=== PATIENT | female | born 1995 | race Two or more races ===

== ENCOUNTER 2017-07-04 06:29 | Emergency (ER) | payer OTHER | END 2017-07-04 06:59 | disposition home or self-care (01) | LOC: ER 06:29 | DX: K05.20 Aggressive periodontitis, unspecified (principal) | CPT/HCPCS: 99283 ==

== ENCOUNTER 2018-08-21 15:41 | Emergency (ER) | payer OTHER ==
[~2018-08-21] VITALS: Ht 160 cm; Wt 81.6 kg
[~2018-08-21 15:41] MED LIST: CLIN150C14 PO; HYDR-3164 PO; IBUP-1007 PO
[2018-08-21 15:56] VITALS: BP 110/73
[2018-08-21] MEDS ORDERED: CETIRIZINE HCL 10 MG TABLET. PO STA (16:39)
[2018-08-21] MEDS ORDERED: predniSONE 10 MG TABLET PO ONE (16:45)
[2018-08-21] MEDS ORDERED: KETOTIFEN FUMARATE 0.025% OPHTH SOLUTION BOTTLE. OU ONE (16:45)
[2018-08-21] MEDS ORDERED: CETI10TA22 PO (16:56)
--- NOTE | 2018-08-21 16:56 | PHYS DOC ---
Past Medical History Past Medical History: No Pertinent History Past Surgical History: No Surgical History Alcohol Use: None Drug Use: None Adult General Chief Complaint Chief Complaint: EYE PROBLEMS HPI HPI Patient is a 22 year old female with no significant medical history who presents to the ED today complaining of bilateral eyes itching and redness as well as clear drainage with sneezing that began a week ago. Patient denies any fever coughing or congestion. Review of Systems Review of Systems Constitutional: Denies fever or chills [] Eyes: Pupils bilateral eye itching, redness, clear drainage. Denies change in visual acuity, eye pain [] HENT: Reports sneezing. Denies nasal congestion or sore throat [] Respiratory: Denies cough or shortness of breath [] Cardiovascular: No additional information not addressed in HPI [] GI: Denies abdominal pain, nausea, vomiting, bloody stools or diarrhea [] : Denies dysuria or hematuria [] Musculoskeletal: Denies back pain or joint pain [] Integument: Denies rash or skin lesions [] Neurologic: Denies headache, focal weakness or sensory changes [] All other systems were reviewed and found to be within normal limits, except as documented in this note. Current Medications Current Medications Current Medications Medications (Trade) Dose Ordered Sig/Melba Start Time Stop Time Status Last Admin Dose Admin Cetirizine HCl (ZyrTEC) 10 mg 1X STAT 08/21/18 16:39 08/21/18 16:40 DC Ketotifen Fumarate (Zaditor) 1 drop 1X ONCE 08/21/18 16:45 08/21/18 16:46 DC Prednisone (Prednisone) 50 mg 1X ONCE 08/21/18 16:45 08/21/18 16:46 DC Allergies Allergies Allergies Coded Allergies Type Severity Reaction Last Updated Verified No Known Drug Allergies 07/04/17 No Physical Exam Physical Exam Constitutional: Well developed, well nourished, no acute distress, non-toxic appearance. [] HENT: Normocephalic, atraumatic, bilateral external ears normal, oropharynx moist, no oral exudates, nose normal. [] Eyes: PERRLA, EOMI, bilateral conjunctiva mildly injected right worse than left , clear drainage noted Neck: Normal range of motion, no tenderness, supple, no stridor. [] Cardiovascular:Heart rate regular rhythm, no murmur [] Lungs & Thorax: Bilateral breath sounds clear to auscultation [] Abdomen: Bowel sounds normal, soft, no tenderness, no masses, no pulsatile masses. [] Skin: Warm, dry, no erythema, no rash. [] Back: No tenderness, no CVA tenderness. [] Extremities: No tenderness, no cyanosis, no clubbing, ROM intact, no edema. [] Neurologic: Alert and oriented X 3, normal motor function, normal sensory function, no focal deficits noted. [] Psychologic: Affect normal, judgement normal, mood normal. [] Current Patient Data Vital Signs Vital Signs Date Time Temp Pulse Resp B/P (MAP) Pulse Ox O2 Delivery O2 Flow Rate FiO2 08/21/18 15:56 99.0 73 20 110/73 (85) 98 Room Air 99.0 EKG EKG [] Radiology/Procedures Radiology/Procedures [] Course & Med Decision Making Course & Med Decision Making Pertinent Labs and Imaging studies reviewed. (See chart for details) Patient is in the ED with symptoms consistent of seasonal allergies. Was given Zaditor eyedrops in the ED, discharged with Zyrtec. Follow-up with PCP in 1-2 weeks as needed. Dragon Disclaimer Dragon Disclaimer This electronic medical record was generated, in whole or in part, using a voice recognition dictation system. Departure Departure Impression: Primary Impression: Allergic conjunctivitis and rhinitis Disposition: 01 HOME, SELF-CARE Condition: STABLE Referrals: NO PCP (PCP) Follow-up with your doctor in 1-2 weeks Patient Instructions: Allergic Conjunctivitis, [id number], Allergies, Generic Additional Instructions: You were evaluated in the emergency room with symptoms consistent of seasonal allergies. Use Zaditor twice a day. Take Zyrtec every day. Follow-up with your doctor in 2 weeks. Scripts Cetirizine Hcl (ZYRTEC) 10 Mg Tablet 1 TAB PO DAILY, #30 TAB 2 Refills Prov: DARIUZS LEE APRN 08/21/18 Problem Qualifiers Primary Impression: Allergic conjunctivitis and rhinitis Laterality: bilateral Qualified Codes: H10.13 - Acute atopic conjunctivitis , bilateral; J30.9 - Allergic rhinitis, unspecified ROSADARIUSZ DIONI Aug 21, 2018 16:56
== END 2018-08-21 17:16 | disposition home or self-care (01) ==
LOC: ER 15:41
DX: H10.13 Acute atopic conjunctivitis, bilateral (principal); J30.9 Allergic rhinitis, unspecified
CPT/HCPCS: 99284; J7512

== ENCOUNTER 2020-09-28 00:42 | Emergency (ER) | payer OTHER ==
[~2020-09-28] VITALS: Ht 157.5 cm; Wt 90.9 kg
[~2020-09-28 00:42] MED LIST changes: +CETI10TA74 PO; -CLIN150C14 PO; +CLIN150C15 PO
--- NOTE | 2020-09-28 03:21 | ED.ADGEN ---
Past Medical History Past Medical History: No Pertinent History Past Surgical History: No Surgical History Smoking Status: Never Smoker Alcohol Use: None Drug Use: None General Adult EDM: Chief Complaint: VAGINAL BLEEDING HPI: HPI: Patient is 25-year-old female who presents to the emergency room complaining of vaginal bleeding during . Patient states that she had a positive test 2 weeks ago. She states that she was seen at 4 days ago when she first had bleeding at that time she had a positive test. She states that they did not do an ultrasound at that time but told her that this bleeding was normal. She states that at that time she was having mild spotting. She then developed heavy bleeding with clots. She stopped bleeding yesterday. She took test this morning and it was negative. She no longer has any bleeding or pain. Review of Systems: Review of Systems: Complete ROS is negative unless otherwise documented in HPI Allergies: Allergies: Allergies Coded Allergies Type Severity Reaction Last Updated Verified No Known Drug Allergies 07/04/17 No Physical Exam: PE: General: Awake, alert, NAD. Well Nourished, well hydrated. Cooperative HEENT: Atraumatic, EOMI, PERRL, airway patent, moist oral mucosa Neck: Supple, trachea midline Respiratory: CTA bilaterally, normal effort, no wheezing/crackles CV: RRR, no murmur, cap refill <2 GI: Soft, nondistended, nontender, no masses MSK: No obvious deformities Skin: Warm, dry, intact Neuro: A&O x3, speech NL, sensory and motor grossly intact, no focal deficits Psych: Normal affect, normal mood, not suicidal or homicidal Current Patient Data: Labs: Laboratory Tests Test 09/28/20 00:56 09/28/20 02:00 POC Urine HCG, Qualitative Hcg negative (Negative) Maternal Serum HCG Beta Subunit 13 mIU/mL (0-5) H Vital Signs: Vital Signs Date Time Temp Pulse Resp B/P (MAP) Pulse Ox O2 Delivery O2 Flow Rate FiO2 09/28/20 02:28 68 18 96/59 (71) 99 Room Air 09/28/20 01:00 98.0 98.0 EKG: EKG: [] Heart Score: C/O Chest Pain: N/A Risk Factors: Risk Factors: DM, Current or recent (<one month) smoker, HTN, HLP, family history of CAD, obesity. Risk Scores: Score 0 - 3: 2.5% MACE over next 6 weeks - Discharge Home Score 4 - 6: 20.3% MACE over next 6 weeks - Admit for Clinical Observation Score 7 - 10: 72.7% MACE over next 6 weeks - Early Invasive Strategies Radiology/Procedures: Radiology/Procedures: [] Course & Med Decision Making: Course & Med Decision Making Pertinent Labs and Imaging studies reviewed. (See chart for details) Patient is a 25-year-old female who presents to the emergency room complaining of vaginal bleeding during . At this time patient's test is negative. He does like that she had a miscarriage earlier in the week. She no longer has any bleeding or pain making ectopic highly unlikely. Type and screen was done due to vaginal bleeding during and patient is AB-. She will be given RhoGam here in the emergency room. She will follow up with [facility]. Patient's test results and vitals while in the ED were fully reviewed and discussed with the patient. Patient is stable and at this time does not need admission to the hospital. We have discussed strict return precautions and the importance of following up with their Primary Care Physician. Patient stated understanding and was given an opportunity to ask any questions. Patient is in agreement with plan. Dragon Disclaimer: Symone Disclaimer: This electronic medical record was generated, in whole or in part, using a voice recognition dictation system. Departure Departure Impression: Primary Impression: Miscarriage Additional Impression: Need for rhogam due to Rh negative mother Disposition: HOME / SELF CARE / HOMELESS Condition: STABLE Referrals: UNKNOWN PCP NAME (PCP) Patient Instructions: Miscarriage, RhoGAM Problem Qualifiers AIMEE SCHAFER MD September 28, 2020 03:21
[2020-09-28 03:41] VITALS: BP 120/72
== END 2020-09-28 03:50 | disposition home or self-care (01) ==
LOC: ER 00:42
DX: O03.9 Complete or unspecified spontaneous abortion without complication (principal)
CPT/HCPCS: 36415; 36430; 81025; 84702; 86850; 86900; 86901; 99285; J2790

== ENCOUNTER 2021-01-02 13:20 | Emergency (ER) | payer OTHER ==
[~2021-01-02] VITALS: Ht 160 cm; Wt 90.0 kg
[~2021-01-02 13:20] MED LIST changes: -CLIN150C15 PO; +CLIN150C16 PO
[2021-01-02] MEDS ORDERED: ONDANSETRON PF 4 MG/2 ML VIAL. IVP ONE (14:00)
[2021-01-02] MEDS ORDERED: IV NORMAL SALINE 1000ML BAG 1,000 ML IV SCH (14:00)
[2021-01-02] MEDS ORDERED: MORPHINE SULFATE 4 MG/ML INJ. IV/SQ PRN (14:00)
--- NOTE | 2021-01-02 14:00 | ED.ADGEN ---
Past Medical History Past Medical History: No Pertinent History Additional Past Medical Histor: miscarriage Past Surgical History: No Surgical History Smoking Status: Never Smoker Alcohol Use: None Drug Use: None General Adult EDM: Chief Complaint: ABDOMINAL PAIN HPI: HPI: Patient is a 25-year-old female who arrives ambulatory to the emergency department complaining of midepigastric pain upper abdomen as well as nausea with vomiting. Patient reports her pain began today however she has regularly experienced experiences nausea and vomiting with any oral intake throughout her . Patient also points to the epigastric/mid abdomen as to where her pain lies. Patient states despite her symptoms, she is not had any fevers. She further denies any lower abdominal pain, diarrhea, genitourinary symptoms or any vaginal bleeding. It is worth noting the patient is 14 weeks and has care outside of the hospital. She is awake, alert and uncomfortable appearing. Review of Systems: Review of Systems: Constitutional: Denies fever or chills. [] Eyes: Denies change in visual acuity. [] HENT: Denies nasal congestion or sore throat. [] Respiratory: Denies cough or shortness of breath. [] Cardiovascular: Denies chest pain or edema. [] GI: Reports nausea with vomiting and abdominal pain. Denies bloody stools or diarrhea. [] : Reports . Denies dysuria. [] Musculoskeletal: Denies back pain or joint pain. [] Integument: Denies rash. [] Neurologic: Denies headache, focal weakness or sensory changes. [] Endocrine: Denies polyuria or polydipsia. [] Lymphatic: Denies swollen glands. [] Psychiatric: Denies depression or anxiety. [] Current Medications: Current Medications Medications (Trade) Dose Ordered Sig/[facility] Start Time Stop Time Status Last Admin Dose Admin Morphine Sulfate (Morphine Sulfate) 4 mg PRN Q15MIN PRN 01/02/21 14:00 01/03/21 13:59 01/02/21 14:07 4 MG Ondansetron HCl (Zofran) 4 mg 1X ONCE 01/02/21 14:00 01/02/21 14:01 DC 01/02/21 14:07 4 MG Sodium Chloride 1,000 ml @ 1,000 mls/hr Q1H 01/02/21 14:00 01/02/21 14:59 DC 01/02/21 14:07 1,000 MLS/HR Allergies: Allergies: Allergies Coded Allergies Type Severity Reaction Last Updated Verified No Known Drug Allergies 01/02/21 No Physical Exam: PE: Constitutional: Uncomfortable appearing. Well developed, well nourished, no acute distress, non-toxic appearance. [] HENT: Normocephalic, atraumatic, bilateral external ears normal, oropharynx moist, no oral exudates, nose normal. [] Eyes: PERRLA, EOMI, conjunctiva normal, no discharge. [] Neck: Normal range of motion, no tenderness, supple, no stridor. [] Cardiovascular:Heart rate regular rhythm, no murmur [] Lungs & Thorax: Bilateral breath sounds clear to auscultation [] Abdomen: Tenderness palpation of the epigastric region. Bowel sounds normal, soft, no masses, no pulsatile masses. [] Skin: Warm, dry, no erythema, no rash. [] Back: No tenderness, no CVA tenderness. [] Extremities: No tenderness, no cyanosis, no clubbing, ROM intact, no edema. [] Neurologic: Alert and oriented X 3, normal motor function, normal sensory function, no focal deficits noted. [] Psychologic: Affect normal, judgement normal, mood normal. [] Current Patient Data: Labs: Laboratory Tests Test 01/02/21 13:30 01/02/21 14:00 Urine Collection Type Unknown Urine Color Yellow Urine Clarity Cloudy Urine pH 6.5 (<5.0-8.0) Urine Specific Mclean 1.020 (1.000-1.030) Urine Protein Negative mg/dL (NEG-TRACE) Urine Glucose (UA) Negative mg/dL (NEG) Urine Ketones (Stick) 15 mg/dL (NEG) Urine Blood Negative (NEG) Urine Nitrite Negative (NEG) Urine Bilirubin Negative (NEG) Urine Urobilinogen Dipstick 0.2 mg/dL (0.2 mg/dL) Urine Leukocyte Esterase Trace (NEG) Urine RBC 0 /HPF (0-2) Urine WBC Occ /HPF (0-4) Urine Squamous Epithelial Cells Mod /LPF Urine Bacteria Few /HPF (0-FEW) Urine Mucus Mod /LPF White Blood Count 7.5 x10^3/uL (4.0-11.0) Red Blood Count 4.04 x10^6/uL (3.50-5.40) Hemoglobin 11.7 g/dL (12.0-15.5) L Hematocrit 34.7 % (36.0-47.0) L Mean Corpuscular Volume 86 fL (79-100) Mean Corpuscular Hemoglobin 29 pg (25-35) Mean Corpuscular Hemoglobin Concent 34 g/dL (31-37) Red Cell Distribution Width 13.2 % (11.5-14.5) Platelet Count 140 x10^3/uL (140-400) Neutrophils (%) (Auto) 80 % (31-73) H Lymphocytes (%) (Auto) 11 % (24-48) L Monocytes (%) (Auto) 6 % (0-9) Eosinophils (%) (Auto) 2 % (0-3) Basophils (%) (Auto) 0 % (0-3) Neutrophils # (Auto) 6.0 x10^3/uL (1.8-7.7) Lymphocytes # (Auto) 0.8 x10^3/uL (1.0-4.8) L Monocytes # (Auto) 0.5 x10^3/uL (0.0-1.1) Eosinophils # (Auto) 0.1 x10^3/uL (0.0-0.7) Basophils # (Auto) 0.0 x10^3/uL (0.0-0.2) Sodium Level 137 mmol/L (136-145) Potassium Level 3.5 mmol/L (3.5-5.1) Chloride Level 104 mmol/L (98-107) Carbon Dioxide Level 23 mmol/L (21-32) Anion Gap 10 (6-14) Blood Urea Nitrogen 4 mg/dL (7-20) L Creatinine 0.8 mg/dL (0.6-1.0) Estimated GFR (Cockcroft-Gault) 86.7 BUN/Creatinine Ratio 5 (6-20) L Glucose Level 102 mg/dL (70-99) H Calcium Level 9.1 mg/dL (8.5-10.1) Total Bilirubin 0.4 mg/dL (0.2-1.0) Aspartate Amino Transferase (AST) 8 U/L (15-37) L Alanine Aminotransferase (ALT) 22 U/L (14-59) Alkaline Phosphatase 83 U/L (46-116) Total Protein 6.9 g/dL (6.4-8.2) Albumin 2.9 g/dL (3.4-5.0) L Albumin/Globulin Ratio 0.7 (1.0-1.7) L Lipase 79 U/L (73-393) Laboratory Tests 01/02/21 14:00 Laboratory Tests 01/02/21 14:00 Vital Signs: Vital Signs Date Time Temp Pulse Resp B/P (MAP) Pulse Ox O2 Delivery O2 Flow Rate FiO2 01/02/21 14:36 74 16 98/61 (73) 97 Room Air 01/02/21 13:40 98.6 98.6 EKG: EKG: [] Heart Score: C/O Chest Pain: No Risk Factors: Risk Factors: DM, Current or recent (<one month) smoker, HTN, HLP, family history of CAD, obesity. Risk Scores: Score 0 - 3: 2.5% MACE over next 6 weeks - Discharge Home Score 4 - 6: 20.3% MACE over next 6 weeks - Admit for Clinical Observation Score 7 - 10: 72.7% MACE over next 6 weeks - Early Invasive Strategies Radiology/Procedures: Radiology/Procedures: [] Impression: [facility] [address] [place], [place] [id number] IMAGING REPORT Signed PATIENT: ANGÉLICA SHIRLEY ACCOUNT: [id number] : 1995 LOCATION: ER AGE: 25 SEX: F EXAM STATUS: REG ER ORD. PHYSICIAN: PHIL LEWIS DO REASON: Right upper quadrant abdominal pain PROCEDURE: ABDOMEN LTD INDICATION : Reason: Right upper quadrant abdominal pain / Spl. Instructions: / History: COMPARISON: None TECHNIQUE: Multiple ultrasound images obtained through the abdomen in grayscale and color. FINDINGS: Pancreas: No gross abnormality identified in visualized portions of pancreas. Liver: Mildly echogenic Gallbladder: There is some layering echogenic material within. Partially contracted. Portion obscured by overlying structures. IVC: Partially distended at level of liver. Common Bile Duct: Not dilated. Right Kidney: No hydronephrosis. IMPRESSION: * Layering echogenic material within the gallbladder which can be seen with sludge. No common bile duct dilation or gallbladder wall thickening. * Liver appears mildly echogenic. Nonspecific but can be seen with fatty infiltration. Electronically signed by: Sheri Thomas MD (01/02/2021 3:02 PM) [id number] DICTATED and SIGNED BY: SHERI THOMAS MD DATE: 01/02/21 [id number] 0 Course & Med Decision Making: Course & Med Decision Making Pertinent Labs and Imaging studies reviewed. (See chart for details) The patient reports to feeling fine at this time. She is no longer experiencing nausea or pain. I do suspect the patient may be experiencing problems with her gallbladder as it relates to her diet. Patient does state that this is almost specifically with any oral intake. I have advised that she follow-up with her [facility] as scheduled for further management of this. In the meantime of advised that she be very cautious with her diet. Specifically have asked that she avoid any fatty, fried or greasy food. Moreover I advised that she consider remaining hydrated and adding bland foods to her diet. The patient understands and has agreed to do so. At this time her abdomen is soft, nontender nor distended. She is stable for discharge. [] heart tones were obtained and found to be 150 bpm. Symone Disclaimer: Symone Disclaimer: This electronic medical record was generated, in whole or in part, using a voice recognition dictation system. Departure Departure Impression: Primary Impression: Abdominal pain affecting Disposition: 01 HOME / SELF CARE / HOMELESS Condition: STABLE Referrals: UNKNOWN PCP NAME (PCP) Patient Instructions: Abdominal Pain During , Biliary Colic PHIL LEWIS DO Jan 02, 2021 14:00
[2021-01-02 14:07] LABS: BILIRUBIN,URINE NEGATIVE (NEG); CLARITY,URINE CLOUDY; COLOR,URINE YELLOW; NITRITE,URINE NEGATIVE (NEG); PH,URINE 6.5 (<5.0-8.0); PROTEIN,URINE NEGATIVE (NEG-TRACE); UROBILINOGEN,URINE 0.2 mg/dL (0.2 mg/dL)
[2021-01-02 14:10] LABS: BASO % 0 % (0-3); EOS # 0.1 x10^3/uL (0.0-0.7); EOS % 2 % (0-3); HEMATOCRIT 34.7 % (36.0-47.0); HEMOGLOBIN 11.7 g/dL (12.0-15.5); LYMPH # 0.8 x10^3/uL (1.0-4.8); LYMPH % 11 % (24-48); MEAN CORPUSCULAR HEMOGLOBIN 29 pg (25-35); MEAN CORPUSCULAR HGB CONC 34 g/dL (31-37); MEAN CORPUSCULAR VOLUME 86 fL (79-100); MONO # 0.5 x10^3/uL (0.0-1.1); MONO % 6 % (0-9); NEUT % 80 % (31-73); PLATELET COUNT 140 x10^3/uL (140-400); RED BLOOD COUNT 4.04 x10^6/uL (3.50-5.40); RED CELL DISTRIBUTION WIDTH 13.2 % (11.5-14.5); WHITE BLOOD COUNT 7.5 x10^3/uL (4.0-11.0)
[2021-01-02 14:16] LABS: BACTERIA,URINE FEW /HPF (0-FEW); RBC,URINE 0 /HPF (0-2); WBC,URINE OCC /HPF (0-4)
[2021-01-02 14:19] LABS: CALCIUM 9.1 mg/dL (8.5-10.1); CREATININE 0.8 mg/dL (0.6-1.0); GFR 86.7; POTASSIUM 3.5 mmol/L (3.5-5.1)
[2021-01-02 14:24] LABS: ALBUMIN 2.9 g/dL (3.4-5.0); ALBUMIN/GLOBULIN RATIO 0.7 (1.0-1.7); TOTAL BILIRUBIN 0.4 mg/dL (0.2-1.0); TOTAL PROTEIN 6.9 g/dL (6.4-8.2)
--- NOTE | 2021-01-02 15:04 | RAD ---
INDICATION : Reason: Right upper quadrant abdominal pain / Spl. Instructions: / History: COMPARISON: None TECHNIQUE: Multiple ultrasound images obtained through the abdomen in grayscale and color. FINDINGS: Pancreas: No gross abnormality identified in visualized portions of pancreas. Liver: Mildly echogenic Gallbladder: There is some layering echogenic material within. Partially contracted. Portion obscured by overlying structures. IVC: Partially distended at level of liver. Common Bile Duct: Not dilated. Right Kidney: No hydronephrosis. IMPRESSION: * Layering echogenic material within the gallbladder which can be seen with sludge. No common bile duct dilation or gallbladder wall thickening. * Liver appears mildly echogenic. Nonspecific but can be seen with fatty infiltration. Electronically signed by: Ramiro Thomas MD (01/02/2021 3:02 PM) [id number]
[2021-01-02 15:36] VITALS: BP 90/50
== END 2021-01-02 15:41 | disposition home or self-care (01) ==
LOC: ER 13:20
DX: O26.891 Other specified pregnancy related conditions, first trimester (principal); R10.13 Epigastric pain; R11.2 Nausea with vomiting, unspecified; Z3A.14 14 weeks gestation of pregnancy
CPT/HCPCS: 36415; 76705; 80053; 81001; 83690; 85025; 87086; 96361; 96374; 96375; 99285; J2270; J2405; J7030

== ENCOUNTER 2021-09-30 22:46 | Emergency (ER) | payer OTHER ==
[~2021-09-30] VITALS: Ht 162.6 cm; Wt 90.9 kg
[2021-09-30] MEDS ORDERED: KETOROLAC 30 MG/ML VIAL. IM ONE (23:15)
--- NOTE | 2021-09-30 23:46 | RAD ---
XR FOOT_RIGHT 3 VIEWS, XR EXAM OF ANKLE_RIGHT 3VIEWS Clinical Indication: Reason: pain s/p injury on single step / Comparison: None. Ankle Findings: There is no acute fracture or dislocation. The ankle mortise is intact. There is minimal lateral ank le soft tissue swelling. Foot findings: Cannot exclude a subtle nondisplaced avulsion fracture of the tuberosity of the fifth metatarsal. The bony alignment is normal. There is no soft tissue abnormality. IMPRESSION: 1. There is no acute fracture of the ankle. 2. Cannot exclude a subtle nondisplaced avulsion fracture of the tuberosity of the fifth metatarsal. Electronically signed by: Bro French MD (09/30/2021 11:43 PM) MATT
[2021-10-01] MEDS ORDERED: NAPR500T8 PO (00:10)
--- NOTE | 2021-10-01 00:11 | PHYS DOC ---
Past Medical History Additional Past Medical Histor: miscarriage Past Surgical History: No Surgical History Smoking Status: Never Smoker Alcohol Use: None Drug Use: None General Adult EDM: Chief Complaint: FOOT INJURY PAIN HPI: HPI: Patient is a 26 year old female who presents with right lateral foot pain that began around 1999. Patient rates her pain 10/10 overlying the area at the base of the fifth metatarsal. She describes the pain as throbbing without radiation. Patient states that when she took a step down out of her back door she twisted her ankle. Patient was unable to bear weight directly after injury or here in the department. She has not taken any medication for the pain. Patient denies any other injury or trauma. She has no other complaints at this time. Review of Systems: Review of Systems: ROS negative or noncontributory except as mentioned in HPI. Heart Score: C/O Chest Pain: No Current Medications: Current Medications Medications (Trade) Dose Ordered Sig/Melba Start Time Stop Time Status Last Admin Dose Admin Ketorolac Tromethamine (Toradol 30mg Vial) 30 mg 1X ONCE 09/30/21 23:15 09/30/21 23:17 DC Allergies: Allergies: Allergies Coded Allergies Type Severity Reaction Last Updated Verified No Known Drug Allergies 01/02/21 No Physical Exam: PE: Constitutional: Obese, non-toxic appearance. HENT: Normocephalic, atraumatic, bilateral external ears normal. Eyes: EOMI, conjunctiva normal, no discharge. Neck: Normal range of motion, no stridor. Thorax: Equal thoracic expansion, no increased work of breathing. Skin: Warm, dry, no erythema, no rash. Extremities: Bony point tenderness over the base of the fifth metatarsal on the right foot with associated swelling, DP/PT pulses 2+ and symmetrical. Extremities otherwise no tenderness, no cyanosis, no clubbing, ROM intact, no edema. Neurologic: Alert and oriented x4, normal motor function, normal sensory function, no focal deficits noted. Current Patient Data: Vital Signs: Vital Signs Date Time Temp Pulse Resp B/P (MAP) Pulse Ox O2 Delivery O2 Flow Rate FiO2 09/30/21 23:00 97.6 73 18 125/83 (97) 100 Room Air 97.6 Radiology/Procedures: Radiology/Procedures: PROCEDURE: FOOT RIGHT 3V XR FOOT_RIGHT 3 VIEWS, XR EXAM OF ANKLE_RIGHT 3VIEWS Clinical Indication: Reason: pain s/p injury on single step / Comparison: None. Ankle Findings: There is no acute fracture or dislocation. The ankle mortise is intact. There is minimal lateral ankle soft tissue swelling. Foot findings: Cannot exclude a subtle nondisplaced avulsion fracture of the tuberosity of the fifth metatarsal. The bony alignment is normal. There is no soft tissue abnormality. IMPRESSION: 1. There is no acute fracture of the ankle. 2. Cannot exclude a subtle nondisplaced avulsion fracture of the tuberosity of the fifth metatarsal. Electronically signed by: Bro French MD (09/30/2021 11:43 PM) [facility] [address] Course & Med Decision Making: Course & Med Decision Making Pertinent Labs and Imaging studies reviewed. (See chart for details) Plain films cannot exclude and a fraction at the base of the fifth metatarsal. Combined with patient's inability to bear weight on the affected foot and bony point tenderness, patient will be treated for dancers fracture. Patient placed in a posterior short splint on the right lower extremity and provided with crutches. She is instructed not to bear weight on the affected foot until cleared by podiatry. Contact information for Dr. Shahab D.P.M. for further evaluation and management was provided. All of the patient and her 's questions were answered. Return precautions were provided. Patient understands and is agreeable to discharge plan. Symone Disclaimer: Symone Disclaimer: This electronic medical record was generated, in whole or in part, using a voice recognition dictation system. Departure Departure Impression: Primary Impression: Dancer's fracture Qualified Codes: S99.191A - Other physeal fracture of right metatarsal, initial encounter for closed fracture Disposition: 01 HOME / SELF CARE / HOMELESS Condition: IMPROVED Referrals: OMKAR ABREU (PCP) JENNIFER KNUTSON DPSigifredo Patient Instructions: Metatarsal Fracture, Undisplaced Additional Instructions: EMERGENCY DEPARTMENT GENERAL DISCHARGE INSTRUCTIONS Thank you for coming to [facility] Emergency Department (ED) today and trusting us with you care. We trust that you had a positive experience in our Emergency Department. If you wish to speak to the department management, you may call the director at . YOUR FOLLOW UP INSTRUCTIONS ARE FOLLOWS: 1. Follow up with your primary care doctor. If you do not have a primary doctor, please ask for a resource list of physicians or clinics that may be able to assist you with follow up care. 2. The emergency provider has interpreted your imaging studies, if any were ordered. The radiology cash processing specialist also reviewed them. If there is a change in the findings, you will be notified in 48 hours when at all possible. 3. If a lab test or culture has been done, your results will be reviewed and you will be notified if you need a change in treatment. 4. Follow instructions verbalized to you and refer to the printouts if needed. ADDITIONAL INSTRUCTIONS AND INFORMATION: 1. Your care today has been supervised by a physician who is specially trained in emergency care. Many problems require more than one evaluation for a complete diagnosis and treatment. We recommend that you schedule your follow up appointment as recommended to ensure complete treatment of you illness or injury. If you are unable to obtain follow up care and continue to have a problem, or if your condition worsens, we recommend that you return to the ED. 2. We are not able to safely determine your condition over the phone nor are we able to give sound medical advice over the phone. For these safety reasons, if you call for medical advice we will ask you to come to the ED for further evaluation. 3. If you have any questions regarding these discharge instructions please call the ED at . SAFETY INFORMATION: In the interest of safety, wellness, and injury prevention; we encourage you to wear your seat belt, if you smoke; quite smoking, and we encourage family to use a protective helmet for bicycling and other sporting events that present an increased risk for head injury. IF YOUR SYMPTOMS WORSEN OR NEW SYMPTOMS DEVELOP, OR YOU HAVE CONCERNS ABOUT YOUR CONDITION; OR IF YOUR CONDITION WORSENS WHILE YOU ARE WAITING FOR YOUR FOLLOW UP APPOINTMENT; EITHER CONTACT YOUR PRIMARY CARE DOCTOR, THE PHYSICIAN WHOSE NAME AND NUMBER YOU WERE GIVEN, OR RETURN TO THE ED IMMEDIATELY. Scripts Naproxen (NAPROXEN) 500 Mg Tablet. 1 TAB PO BID for 10 Days, #20 TAB 0 Refills Prov: YNES RODRIGUEZ 10/01/21 Splinting Patient and her informed of findings. Short posterior splint applied by EMT. The splint is checked by myself, with appropriate stabilization of the injury. Distal capillary refill less than 2 seconds and distal neurologic function intact. YNES RODRIGUEZ October 01, 2021 00:11
[2021-10-01 00:33] VITALS: BP 134/95
== END 2021-10-01 01:05 | disposition home or self-care (01) ==
LOC: ER 22:46
DX: S99.191A Other physeal fracture of right metatarsal, initial encounter for closed fracture (principal); X50.9XXA Other and unspecified overexertion or strenuous movements or postures, initial encounter; Y93.89 Activity, other specified; Y92.89 Other specified places as the place of occurrence of the external cause; Y99.8 Other external cause status
CPT/HCPCS: 29515; 73610; 73630; 96372; 99284; J1885